=== PATIENT | male | born 1995 | race Caucasian/White ===

== ENCOUNTER 2024-09-03 17:14 | Emergency (ER) | payer BC, SELFPAY ==
[2024-09-03 17:15] VITALS: BP 177/112; PULSE 90; RESP 18; TEMP 36.2; O2SAT 98; BMI 38.9
--- NOTE | 2024-09-03 17:30 | EKG12_ITS ---
Test Reason : CP Blood Pressure : */* mmHG Vent. Rate : 83 BPM Atrial Rate : 83 BPM P-R Int : 162 ms QRS Dur : 90 ms QT Int : 356 ms P-R-T Axes : 21 17 24 degrees QTcB Int : 418 ms Normal sinus rhythm with sinus arrhythmia Normal ECG Confirmed by DEMETRIA LEE, MIKE ([id number]), subeditor TERESA VO ([id number]) on 09/04/2024 9:27:40 AM Referred By: Confirmed By: MIKE AUGUSTIN MD
[2024-09-03 17:54] LABS: Absolute Lymphocyte Count 2.76 X10^3/uL (0.83-4.51); Basophil# 0.06 X10^3/uL; Basophil% 0.8 % (0-1); Eosinophil# 0.39 X10^3/uL; Eosinophils% 4.9 % (0-5); Hematocrit 43.8 % (40-54); Hemoglobin 15.8 g/dL (13.0-16.5); Lymphocyte # 2.76 X10^3/ul (0.83-4.51); Lymphocyte % 34.5 % (19-41); Mean Corp Hgb Conc 36.1 g/dL (32-36); Mean Corpuscular Volume 83.1 fL (80-94); Mean Platelet Vol. 10.3 fl (6.2-12.0); Monocyte# 0.73 X10^3/uL; Monocyte% 9.1 % (0-10); NRBC Flagged by Analyzer 0 % (0-5); Neutrophil # 4.02 X10^3/uL (2.7-7.7); Neutrophil % 50.3 % (47-70); Platelet Count 197 K/mm3 (150-450); RBC Distribution Width CV 12.3 % (11.6-14.6); RBC Distribution Width SD 36.9 fl (35.1-43.9); Red Blood Count 5.27 M/mm3 (4.6-6.2)
--- NOTE | 2024-09-03 18:15 | RAD_ITS ---
PROCEDURE: CHEST PA AND LATERAL 09/03/2024 REASON FOR EXAM: CHEST PAIN TECHNIQUE: Frontal and lateral views of the chest. COMPARISON: None FINDINGS: Hardware: None Heart: The heart size is normal. Mediastinum: The mediastinal contour is unremarkable. Lungs: The lungs are clear. Bones: The bones are unremarkable. RAD/Chest PA and Lateral IMPRESSION: NO ACUTE FINDINGS. Reading Location: [facility]
[2024-09-03 18:23] LABS: Anion Gap 11 (5-15); BUN 15 mg/dL (4-19); BUN/Creat Ratio 15.4 RATIO (10-20); Calcium,Total 9.5 mg/dL (7.6-11.0); Carbon Dioxide 23.4 mmol/L (21.0-32.0); Chloride 102 mmol/L (98-108); EST Glomerular Filtration Rate 106 (>60); Glucose 91 mg/dL (70-99); Sodium Level 137 mmol/L (133-145); Troponin T High Sensitivity < 6 ng/L (<=22)
[2024-09-03 18:27] VITALS: BP 154/101; PULSE 81; RESP 13; O2SAT 96
[2024-09-03 19:00] VITALS: BP 148/94; PULSE 81; RESP 16; O2SAT 96
--- NOTE | 2024-09-03 19:43 | EX.ED.DYSGE1 ---
HPI History of Present Illness Chief Complaint: Chest Pain Narrative Narrative: Patient 29-year-old male with no known significant past medical history presents to the emergency department chief complaint of high blood pressure. Patient states that he does not follow with a doctor on regular basis and notes that he has been intermittently having headaches off and on and noted that that he is not feeling well and noted that his just got a blood pressure cough as she is currently and they are monitoring her blood pressure at home. She states that they took his blood pressure today and noted that his blood pressure was in the 160s and was concerned therefore they came here for the evaluation management. Patient states that here in the emergency department he has no complaints and feels fine. Patient notes that blood pressure does run in his family [facility] Medical History no medical history Home Medications ?Medication ?Instructions ?Recorded ?Last Taken ?Type amlodipine 5 mg tablet 5 mg PO DAILY #30 tabs 09/03/24 Unknown Rx Allergy/AdvReac Type Severity Reaction Status Date / Time No Known Allergies Allergy Verified 09/03/24 17:15 Family History no significant family his Surgical History no surgical history Social History Smoking Status: Never smoker ROS ROS ED ROS Narrative Constitutional: Denies headache, fevers, chills Eyes: Denies double vision blurry vision or changes in vision Cardiovascular: Denies chest pain palpitations Respiratory: Denies cough wheezing shortness of breath Abdomen: Denies abdominal pain nausea vomit diarrhea : Denies urinary symptoms Neurological: Denies numbness, aches, tingling Musculoskeletal: Denies back pain Skin: Denies rashes or lesions EXAM Physical Exam Narrative Exam Narrative: General: Patient lying bed rest comfortably appear to be acute distress Head: Atraumatic, normocephalic Eyes: PERRL bilaterally, EOMI bilaterally, no conjunctival injection noted Neck: Soft and supple and trachea midline Cardiovascular: Regular rate and rhythm no murmurs gallops rubs noted Respiratory: Clear to auscultation bilaterally Abdomen: Soft, nondistended, tender to palpation Extremities: +5/5 strength noted in the bilateral upper and lower extremities, radial pulses +2/4 in the bilateral extremities Neurological: Patient following commands knew that he was at [facility] the year is 2024. NIH is 0 GCS 15 Skin: Warm, dry contact no rashes or lesions noted Const Vital Signs: 09/03/24 17:15 09/03/24 17:50 09/03/24 18:27 Temperature 97.2 F L Temperature Source Temporal Pulse Rate 90 81 Respiratory Rate 18 13 Blood Pressure 177/112 H 154/101 H Blood Pressure Mean 133 118 Pulse Ox 98 96 Oxygen Delivery Method Room Air Room Air 09/03/24 19:00 Temperature Temperature Source Pulse Rate 81 Respiratory Rate 16 Blood Pressure 148/94 H Blood Pressure Mean 112 Pulse Ox 96 Oxygen Delivery Method Room Air MDM MDM MDM Narrative Medical decision making narrative: Patient is a 29-year-old male who presented to the emergency department with concern of hypertension. On the differential diagnose includes but only to essential hypertension, hypertension emergency. Once workup is obtained reviewed he will be reevaluated. Patient's CBC was reviewed and was largely unremarkable no evidence leukocytosis white blood count normal at 8, hemoglobin is 15.8, platelet count normal at 197 p Patient sodium normal 137, potassium normal 4, creatinine normal at 1, troponin was less than 6 patient's EKG reviewed and showed sinus rhythm with a rate of 83 bpm. Patient chest x-ray reviewed by myself and by radiology showed no acute cardiopulmonary processes On reevaluation patient is feeling well he would like to go home at this point in time. Given the fact that he has been working out of town and is only home on the weekends he does not have a primary care physician will start him on 5 mg of the amlodipine he was advised take his blood pressure randomly 2-3 times a day and keep a log of this and follow-up with the doctor he was referred to. He is advised to return with worsening symptoms or any concerns. He is agreeable this plan all question concerns answered he is discharged home in stable condition Lab Data Labs: Laboratory Results - last 24 hr 09/03/24 17:47 WBC 8.0 RBC 5.27 Hgb 15.8 Hct 43.8 MCV 83.1 MCH 30.0 MCHC 36.1 H RDW Std Deviation 36.9 RDW Coeff of Jim 12.3 Plt Count 197 MPV 10.3 Immature Gran % (Auto) 0.400 Neut % (Auto) 50.3 Lymph % (Auto) 34.5 Iron % (Auto) 9.1 Eos % (Auto) 4.9 Baso % (Auto) 0.8 Absolute Neuts (auto) 4.0 Absolute Lymphs (auto) 2.76 Nucleated RBC % 0 Sodium 137 Potassium 4.0 Chloride 102 Carbon Dioxide 23.4 Anion Gap 11 BUN 15 Creatinine 1.00 Estim Creat Clear Calc 172.70 Est GFR (MDRD) Non-Af 106 BUN/Creatinine Ratio 15.4 Glucose 91 Calcium 9.5 Troponin T High Sens < 6 Radiography Diagnostic Testing: Clinical Impression(s) from Imaging Studies Chest X-Ray 09/03/24 18:15 IMPRESSION: NO ACUTE FINDINGS. [facility] T[facility] Chief Complaint: Chest Pain ED Provider: Erik Hill Dx/Rx/DC Orders Clinical Impression: Hypertension Prescriptions: New amlodipine 5 mg tablet 5 mg PO DAILY Qty: 30 0RF Primary Care Provider: Care Physician,No Primary Referrals: Care Physician,No Primary [Primary Care Provider] - Patria Santoro, [facility] [employer] [[facility]] - Activity Restrictions/Additional Instructions: Take the blood pressure medication as prescribed. Keep a blood pressure log by randomly taking her blood pressure 2-3 times a day write this down take this to the primary care physician they referred. Return with worsening symptoms or concerns. Your blood work was normal and your chest x-ray did not show any acute findings today. Print Language: Swedish Disposition Disposition: Home, Self Care
[2024-09-03 19:57] VITALS: BP 144/78; PULSE 78; RESP 16; TEMP 36.5; O2SAT 96
== END 2024-09-03 19:58 | disposition home or self-care (01) ==
PROVIDERS: Emergency Provider Emergency Medicine; Visit Provider Emergency Medicine
DX: I10 Essential (primary) hypertension (principal); R07.89 Other chest pain
CPT/HCPCS: 71046; 80048; 84484; 85025; 93005; 99284; A4216